=== PATIENT | male | born 2000 | race Caucasian/White ===

== ENCOUNTER 2022-02-25 18:16 | Emergency (ER) | payer MEDICAID, MEDICARE ==
[~2022-02-25] VITALS: Ht 165.1 cm; Wt 61.4 kg
[2022-02-25 18:24] VITALS: BP 120/59
--- NOTE | 2022-02-25 18:29 | NUR ---
PT AMB TO BED 7.
--- NOTE | 2022-02-25 18:45 | NUR ---
IAIN MADDOX AT BEDSIDE.
[2022-02-25] MEDS ORDERED: CARB15DR27 LEFT EAR (18:52)
--- NOTE | 2022-02-25 18:52 | NUR ---
21 Y/O M BIB SELF C/O WATER LEFT IN EAR AFTER SWIMMING X 4 DAYS. NKA OR PAST MEDICAL HX
--- NOTE | 2022-02-25 18:52 | NUR ---
21/M PRESENTS TO ED WITH C/O DIFFICULTY HEARING FROM LEFT EAR X4 DAYS. PATIENT REPORTS GOING SWIMMING 4 DAYS AGO AND STATES "I THINK I HAVE WATER IN MY EAR." PATIENT DENIES PAIN, FEVERS, CHILLS.
--- NOTE | 2022-02-25 19:03 | NUR ---
Patient discharged with v/s stable. Written and verbal after care instructions given and explained. Patient alert, oriented and verbalized understanding of instructions. Ambulatory with steady gait. All questions addressed prior to discharge. ID band removed. Patient advised to follow up with PMD. Rx of CARBAMIDE PEROXIDE given. Opportunity to ask questions provided and answered.
--- NOTE | 2022-02-25 19:04 | NUR ---
The patient's care was reviewed and supervised by Brittni Rueda RN.
== END 2022-02-25 19:03 | disposition home or self-care (01) ==
LOC: MED 18:16
DX: T16.2XXA Foreign body in left ear, initial encounter (principal); X58.XXXA Exposure to other specified factors, initial encounter; Y93.89 Activity, other specified; Y92.89 Other specified places as the place of occurrence of the external cause; Y99.8 Other external cause status
CPT/HCPCS: 99282

== ENCOUNTER 2023-05-27 01:30 | Emergency (ER) | payer MEDICAID ==
[~2023-05-27] VITALS: Ht 170.2 cm; Wt 74.8 kg
[~2023-05-27 01:30] MED LIST: CARB15DR27 LEFT EAR
[2023-05-27 01:35] VITALS: BP 155/55; PULSE 118; RESP 16; TEMP 97.4; O2SAT 100
[2023-05-27] MEDS ORDERED: LIDOCAINE MPF 1% 10 MG/ML VIAL INJ ONE (02:25)
[2023-05-27] MEDS ORDERED: KETOROLAC 30 MG/ML VIAL IM ONE (02:25)
[2023-05-27] MEDS ORDERED: IBUP-2213 PO (04:12)
[2023-05-27] MEDS ORDERED: ACET-10509 PO (04:12)
[2023-05-27 04:29] VITALS: BP 120/74; PULSE 88; RESP 16; TEMP 97; O2SAT 100
== END 2023-05-27 04:29 | disposition home or self-care (01) ==
LOC: MED 01:30
DX: S61.011A Laceration without foreign body of right thumb without damage to nail, initial encounter (principal); F10.129 Alcohol abuse with intoxication, unspecified; Y90.9 Presence of alcohol in blood, level not specified; X58.XXXA Exposure to other specified factors, initial encounter; Y93.89 Activity, other specified; Y92.89 Other specified places as the place of occurrence of the external cause; Y99.8 Other external cause status
CPT/HCPCS: 12002; 90471; 90715; 96372; 99284; J1885; J2001

== ENCOUNTER 2023-06-05 17:41 | Emergency (ER) | payer MEDICAID ==
[~2023-06-05] VITALS: Ht 162.6 cm; Wt 63.5 kg
[~2023-06-05 17:41] MED LIST changes: +ACET-10509 PO; +IBUP-2213 PO
[2023-06-05 17:54] VITALS: BP 122/74; PULSE 89; RESP 18; TEMP 98; O2SAT 98
[2023-06-05] MEDS ORDERED: BACITRACIN OINT 500 UNITS/GM PKT TP ONE (18:00)
[2023-06-05 18:11] VITALS: BP 122/74; PULSE 89; RESP 18; TEMP 98; O2SAT 98
== END 2023-06-05 18:11 | disposition home or self-care (01) ==
LOC: MED 17:41
DX: S61.011D Laceration without foreign body of right thumb without damage to nail, subsequent encounter (principal); Z48.02 Encounter for removal of sutures; X58.XXXD Exposure to other specified factors, subsequent encounter
CPT/HCPCS: 99282

== ENCOUNTER 2023-12-07 15:59 | Emergency (ER) | payer MEDICAID ==
[~2023-12-07] VITALS: Ht 165.1 cm; Wt 63.5 kg
[2023-12-07 16:33] VITALS: BP 110/69; PULSE 63; RESP 18; TEMP 98.3; O2SAT 97
[2023-12-07] MEDS ORDERED: CEPH-588 PO (17:12)
[2023-12-07 17:30] VITALS: BP 112/62; PULSE 88; RESP 16; TEMP 98; O2SAT 99
== END 2023-12-07 17:30 | disposition home or self-care (01) ==
LOC: MED 15:59
DX: L03.031 Cellulitis of right toe (principal); Z79.899 Other long term (current) drug therapy
CPT/HCPCS: 99283

== ENCOUNTER 2024-01-21 16:38 | Emergency (ER) | payer MEDICAID ==
[~2024-01-21] VITALS: Ht 172.7 cm; Wt 86.2 kg
[~2024-01-21 16:38] MED LIST changes: +CEPH-588 PO
[2024-01-21 17:15] VITALS: BP 111/66; PULSE 62; RESP 16; TEMP 97.8; O2SAT 99
[2024-01-21 18:37] VITALS: BP 111/66; PULSE 62; RESP 16; TEMP 97.8; O2SAT 99
== END 2024-01-21 18:37 | disposition home or self-care (01) ==
LOC: MED 16:38
DX: H61.22 Impacted cerumen, left ear (principal); R03.0 Elevated blood-pressure reading, without diagnosis of hypertension; Z79.1 Long term (current) use of non-steroidal anti-inflammatories (NSAID); Z79.2 Long term (current) use of antibiotics; Z79.899 Other long term (current) drug therapy
CPT/HCPCS: 99282